=== PATIENT | female | born 1945 | race Caucasian/White ===

== ENCOUNTER 2019-07-10 15:40 | Emergency (ER) | payer OTHER ==
[~2019-07-10] VITALS: Ht 147.3 cm; Wt 52.2 kg
[2019-07-10 16:01] VITALS: Ht 147.3 cm; Wt 52.2 kg
[2019-07-10 18:46] VITALS: BP 148/71
== END 2019-07-10 18:46 | disposition home or self-care (01) ==
LOC: ED 15:40
DX: T78.40XA Allergy, unspecified, initial encounter (principal); I10 Essential (primary) hypertension; Z98.890 Other specified postprocedural states; X58.XXXA Exposure to other specified factors, initial encounter